=== PATIENT | male | born 1965 | race African-American/Black ===

== ENCOUNTER 2023-12-16 16:12 | Inpatient (IN) | payer MEDICARE, OTHER ==
[2023-12-16] MEDS: methylPREDNISolone SOD SUCCI 125 MG/2 ML VIAL IV STA (17:45)
[2023-12-16] MEDS: SODIUM CHLORIDE 0.9% 500 ML 500 ML IV STA (18:07)
[2023-12-16 18:19] LABS: INR 0.9 (<1.2); Partial Thromboplastin Time 22.9 sec (22.0-30.0); Prothrombin Time 10.3 sec (10.0-12.5)
[2023-12-16 18:20] LABS: Basophils # (A) 0.1 k/uL (0-0.2); Basophils % (A) 0 %; Eosinophils # (A) 0.1 k/uL (0-0.7); Eosinophils % (A) 1 %; HCT 44.4 % (39.0-53.0); Lymphocytes # (A) 0.7 k/uL (1.0-4.8); Lymphocytes % (A) 3 %; MCH 32.4 pg (25.0-35.0); MCHC 33.8 g/dL (31.0-37.0); MCV 95.7 fL (80.0-100.0); Mean Platelet Volume 7.3; Monocytes # (A) 0.9 k/uL (0-1.0); Monocytes % (A) 5 %; Neutrophils # (A) 17.7 k/uL (1.3-7.7); Neutrophils % (A) 90 %; Platelet Count 224 k/uL (150-450); RBC 4.64 m/uL (4.30-5.90); RDW 13.1 % (11.5-15.5); WBC 19.6 k/uL (3.8-10.6)
[2023-12-16 18:52] LABS: ALT 44 U/L (4-49); AST 44 U/L (17-59); African American GFR (CKD) >90 (>60 ml/min/1.73 sqM); Albumin 3.9 g/dL (3.5-5.0); Alkaline Phosphatase 73 U/L (38-126); Anion Gap 6 mmol/L; Blood Urea Nitrogen 13 mg/dL (9-20); Carbon Dioxide 25 mmol/L (22-30); Chloride 105 mmol/L (98-107); Glucose 109 mg/dL (74-99); Magnesium 1.8 mg/dL (1.6-2.3); Non-African American GFR(CKD) >90 (>60 ml/min/1.73 sqM); Sodium 136 mmol/L (137-145); Total Bilirubin 0.6 mg/dL (0.2-1.3); Total Protein 6.5 g/dL (6.3-8.2)
--- NOTE | 2023-12-16 19:23 | XR ---
EXAMINATION TYPE: XR chest 2V DATE OF EXAM: 12/16/2023 COMPARISON: None INDICATION: Difficulty breathing TECHNIQUE: Frontal and lateral views of the chest are obtained. FINDINGS: The heart size is normal. The pulmonary vasculature is normal. Linear infiltrates at the right base. Correlate for atelectasis.. IMPRESSION: 1. Right lung base plate atelectasis
--- NOTE | 2023-12-16 19:24 | ED ---
General Adult HPI - General Chief complaint: Shortness of Breath Stated complaint: SOB Time Seen by Provider: 12/16/23 16:41 Source: patient, EMS Mode of arrival: EMS Limitations: no limitations - History of Present Illness Initial comments: 58-year-old male presenting with chief complaint of shortness of breath. Patient comes from [facility], he has been there for the last 2 and half weeks. He is therefore alcoholism and crack cocaine use. States that he has had some mild shortness of breath for few weeks, but today his symptoms worsened severely. He admits to productive cough. Denies chest pain. Denies lower extremity swelling. Denies fevers. - Related Data Home Medications Medication Instructions Recorded Confirmed Acetaminophen [Tylenol] 650 mg PO Q4H PRN 12/16/23 12/16/23 Albuterol Inhaler [Ventolin Hfa 1 - 2 puff INHALATION RT-Q4H PRN 12/16/23 12/16/23 Inhaler] Albuterol Nebulized [Ventolin 2.5 mg INHALATION RT-Q4H PRN 12/16/23 12/16/23 Nebulized] Aspirin EC [Ecotrin Low Dose] 81 mg PO DAILY 12/16/23 12/16/23 Brexpiprazole [Rexulti] 1 mg PO HS 12/16/23 12/16/23 Calcium/Magnesium/Zinc/Vitamin D 1 tab PO TID PRN 12/16/23 12/16/23 Chlorpheniramine Maleate 4 mg PO Q4H PRN 12/16/23 12/16/23 [Chlor-Trimeton] Citalopram Hydrobromide [CeleXA] 20 mg PO DAILY 12/16/23 12/16/23 Finasteride [Proscar] 5 mg PO DAILY 12/16/23 12/16/23 Hyoscyamine Sulfate [Levsin] 0.125 mg PO QID PRN 12/16/23 12/16/23 Mag Hydrox/Aluminum Hyd/Simeth 30 ml PO Q4HR PRN 12/16/23 12/16/23 [Mylanta Maximum Strength Liq] Multivitamins, Thera [Multivitamin 1 tab PO DAILY 12/16/23 12/16/23 (formulary)] Rosuvastatin [Crestor] 20 mg PO HS 12/16/23 12/16/23 Thiamine [Vitamin B-1] 100 mg PO DAILY 12/16/23 12/16/23 buprenorphine HCL [Subutex] 8 mg SL DAILY 12/16/23 12/16/23 busPIRone HCL 15 mg PO TID 12/16/23 12/16/23 guaiFENesin SYRUP 100MG/5ML 200 mg PO Q4H PRN 12/16/23 12/16/23 [Robitussin] ondansetron HCL [Zofran] 8 mg PO Q6H PRN 12/16/23 12/16/23 traZODone HCL 150 mg PO HS 12/16/23 12/16/23 Previous Rx's Medication Instructions Recorded cefUROXime axetiL [Ceftin] 500 mg PO BID 4 Days #8 tab 12/18/23 Allergies Allergy/AdvReac Type Severity Reaction Status Date / Time quetiapine [From Seroquel] AdvReac Chest Pain Verified 12/16/23 16:37 Review of Systems ROS Statement: Those systems with pertinent positive or pertinent negative responses have been documented in the HPI. ROS Other: All systems not noted in ROS Statement are negative. Past Medical History Past Medical History: Hypertension History of Any Multi-Drug Resistant Organisms: None Reported Past Psychological History: No Psychological Hx Reported Smoking Status: Current every day smoker Past Alcohol Use History: Abuse Past Drug Use History: Prescription Drug Abuse General Exam Limitations: no limitations General appearance: alert, in no apparent distress Head exam: Present: atraumatic, normocephalic Eye exam: Present: normal appearance Neck exam: Present: normal inspection Respiratory exam: Present: wheezes, rales (R sided). Absent: respiratory distress, rhonchi, stridor Cardiovascular Exam: Present: regular rate, normal rhythm, normal heart sounds. Absent: systolic murmur, diastolic murmur, rubs, gallop, clicks Neurological exam: Present: alert, oriented X3 Psychiatric exam: Present: normal affect, normal mood Skin exam: Present: warm, dry Course Vital Signs 12/16/23 12/16/23 12/16/23 16:24 19:39 20:56 Temperature 97.5 F L Pulse Rate 104 H 98 96 Pulse Rate [ Pulse Oximetery ] Respiratory 18 18 Rate Blood Pressure 167/96 145/82 Blood Pressure [Right Arm] O2 Sat by Pulse 91 L 92 L Oximetry 12/16/23 12/16/23 12/17/23 21:11 22:02 05:00 Temperature Pulse Rate 90 101 H 85 Pulse Rate [ Pulse Oximetery ] Respiratory 20 18 Rate Blood Pressure 119/69 127/86 Blood Pressure [Right Arm] O2 Sat by Pulse 92 L 95 Oximetry 12/17/23 07:30 Temperature 98.7 F Pulse Rate Pulse Rate [ 90 Pulse Oximetery ] Respiratory 16 Rate Blood Pressure Blood Pressure 129/87 [Right Arm] O2 Sat by Pulse 92 L Oximetry Medical Decision Making - Medical Decision Making 58-year-old male coming from [place] with chief complaint of shortness of breath. Patient admits to cough. He is hypoxic on room air and is started on 4 L O2 via nasal cannula. He has right-sided Rales and wheezing. WBC 19.6. Chest x-ray report comments on right lung base plate atelectasis, however by my interpretation this appears more consistent with pneumonia. Negative troponin. D-dimer was elevated at 0.92. CT negative for pulmonary embolism, mild consolidation in the lingula right middle lobe and right lower lobe, concerning for mild pneumonia. Patient was given Solu-Medrol 125 mg and DuoNeb breathing treatments. He was given 1 dose of ceftriaxone 1 g and azithromycin 500 mg. He will be admitted. He is agreeable to this plan. I discussed this case with my attending Dr. Medina Was pt. sent in by a medical professional or institution (, PA, MARBLEIZING MACHINE TENDER, urgent care, hospital, or halfway...) When possible be specific @ -No Did you speak to anyone other than the patient for history (EMS, parent, family, police, friend...)? What history was obtained from this source @ -No Did you review nursing and triage notes (agree or disagree)? Why? @ -I reviewed and agree with nursing and triage notes Were old charts reviewed (outside hosp., previous admission, EMS record, old EKG, old radiological studies, urgent care reports/EKG's, halfway records)? Report findings @ -No old charts were reviewed Differential Diagnosis (chest pain, altered mental status, abdominal pain women, abdominal pain men, vaginal bleeding, weakness, fever, dyspnea, syncope, headache, dizziness, GI bleed, back pain, seizure, CVA, palpatations, mental health, musculoskeletal)? @ -MDM Differential Dyspnea: Coronary syndrome, arrhythmia, tamponade, asthma, COPD, pulmonary embolism, p neumonia, pneumothorax, pulmonary effusion, anaphylaxis, diabetic ketoacidosis, flailed chest, pulmonary contusion, diaphragmatic rupture, anemia, neuromuscular this is not meant to be an all-inclusive list. EKG interpreted by me (3pts min.). @ -EKG shows sinus rhythm ventricular rate 98. ID interval 122. QRS 82. QT 330. QTc 385. X-rays interpreted by me (1pt min.). @ -Chest x-ray shows right lung base plate atelectasis. However by my interpretation this appears more consistent with pneumonia, especially given the patient's clinical symptoms CT interpreted by me (1pt min.). @ -CT shows no acute pulmonary embolism. Mild consolidation in the lingula right middle lobe and right lower lobe, concerning for mild pneumonia U/S interpreted by me (1pt. min.). @ -None done What testing was considered but not performed or refused? (CT, X-rays, U/S, labs)? Why? @ -None What meds were considered but not given or refused? Why? @ -None Did you discuss the management of the patient with other professionals (professionals i.e. , PA, MARBLEIZING MACHINE TENDER, lab, RT, psych nurse, licensed social worker, customs and border protection officer, teacher, chief environmental commitment officer, correctional counselor/case manager)? Give summary @ -I spoke with Dr. Diaz who accepted admission Was smoking cessation discussed for >3mins.? @ -No Was critical care preformed (if so, how long)? @ -No Were there social determinants of health that impacted care today? How? (Homelessness, low income, unemployed, alcoholism, drug addiction, transportation, low edu. Level, literacy, decrease access to med. care, detention, rehab)? @ -No Was there de-escalation of care discussed even if they declined (Discuss DNR or withdrawal of care, Hospice)? DNR status @ -No What co-morbidities impacted this encounter? (DM, HTN, Smoking, COPD, CAD, Cancer, CVA, ARF, Chemo, Hep., AIDS, mental health diagnosis, sleep apnea, morbid obesity)? @ -None Was patient admitted / discharged? Hospital course, mention meds given and route, prescriptions, significant lab abnormalities, going to OR and other pert inent info. @ -Admitted, see above for details Undiagnosed new problem with uncertain prognosis? @ -No Drug Therapy requiring intensive monitoring for toxicity (Heparin, Nitro, Insulin, Cardizem)? @ -No Were any procedures done? @ -No Diagnosis/symptom? @ -Pneumonia, hypoxia Acute, or Chronic, or Acute on Chronic? @ -Acute Uncomplicated (without systemic symptoms) or Complicated (systemic symptoms)? @ -Complicated Side effects of treatment? @ -No Exacerbation, Progression, or Severe Exacerbation? @ -No Poses a threat to life or bodily function? How? (Chest pain, [place], [place], pneumonia, PE, COPD, DKA, ARF, appy, cholecystitis, CVA, Diverticulitis, Homicidal, Suicidal, threat to staff... and all critical care pts) @ -yes - Lab Data Result diagrams: 12/18/23 06:14 12/18/23 06:14 Lab Results 12/16/23 12/16/23 12/16/23 Range/Units 17:40 17:40 17:40 WBC 19.6 H (3.8-10.6) k/uL RBC 4.64 (4.30-5.90) m/uL Hgb 15.0 (13.0-17.5) gm/dL Hct 44.4 (39.0-53.0) % MCV 95.7 (80.0-100.0) fL MCH 32.4 (25.0-35.0) pg MCHC 33.8 (31.0-37.0) g/dL RDW 13.1 (11.5-15.5) % Plt Count 224 (150-450) k/uL MPV 7.3 Neutrophils % 90 % Lymphocytes % 3 % Monocytes % 5 % Eosinophils % 1 % Basophils % 0 % Neutrophils # 17.7 H (1.3-7.7) k/uL Lymphocytes # 0.7 L (1.0-4.8) k/uL Monocytes # 0.9 (0-1.0) k/uL Eosinophils # 0.1 (0-0.7) k/uL Basophils # 0.1 (0-0.2) k/uL PT 10.3 (10.0-12.5) sec INR 0.9 (<1.2) APTT 22.9 (22.0-30.0) sec D-Dimer (<0.60) mg/L FEU Sodium 136 L (137-145) mmol/L Potassium 4.0 (3.5-5.1) mmol/L Chloride 105 (98-107) mmol/L Carbon Dioxide 25 (22-30) mmol/L Anion Gap 6 mmol/L BUN 13 (9-20) mg/dL Creatinine 0.65 L (0.66-1.25) mg/dL Est GFR (CKD-EPI)AfAm >90 (>60 ml/min/1.73 sqM) Est GFR (CKD-EPI)NonAf >90 (>60 ml/min/1.73 sqM) Glucose 109 H (74-99) mg/dL Plasma Lactic Acid Zack (0.7-2.0) mmol/L Calcium 9.0 (8.4-10.2) mg/dL Magnesium 1.8 (1.6-2.3) mg/dL Total Bilirubin 0.6 (0.2-1.3) mg/dL AST 44 (17-59) U/L ALT 44 (4-49) U/L Alkaline Phosphatase 73 (38-126) U/L Troponin I (0.000-0.034) ng/mL NT-Pro-B Natriuret Pep pg/mL Total Protein 6.5 (6.3-8.2) g/dL Albumin 3.9 (3.5-5.0) g/dL Procalcitonin (0.02-0.09) ng/mL Influenza Type A (PCR) (Not Detectd) Influenza Type B (PCR) (Not Detectd) RSV (PCR) (Not Detectd) SARS-CoV-2 (PCR) (Not Detectd) 12/16/23 12/16/23 12/16/23 Range/Units 17:40 17:40 17:40 WBC (3.8-10.6) k/uL RBC (4.30-5.90) m/uL Hgb (13.0-17.5) gm/dL Hct (39.0-53.0) % MCV (80.0-100.0) fL MCH (25.0-35.0) pg MCHC (31.0-37.0) g/dL RDW (11.5-15.5) % Plt Count (150-450) k/uL MPV Neutrophils % % Lymphocytes % % Monocytes % % Eosinophils % % Basophils % % Neutrophils # (1.3-7.7) k/uL Lymphocytes # (1.0-4.8) k/uL Monocytes # (0-1.0) k/uL Eosinophils # (0-0.7) k/uL Basophils # (0-0.2) k/uL PT (10.0-12.5) sec INR (<1.2) APTT (22.0-30.0) sec D-Dimer (<0.60) mg/L FEU Sodium (137-145) mmol/L Potassium (3.5-5.1) mmol/L Chloride (98-107) mmol/L Carbon Dioxide (22-30) mmol/L Anion Gap mmol/L BUN (9-20) mg/dL Creatinine (0.66-1.25) mg/dL Est GFR (CKD-EPI)AfAm (>60 ml/min/1.73 sqM) Est GFR (CKD-EPI)NonAf (>60 ml/min/1.73 sqM) Glucose (74-99) mg/dL Plasma Lactic Acid Zack 1.2 (0.7-2.0) mmol/L Calcium (8.4-10.2) mg/dL Magnesium (1.6-2.3) mg/dL Total Bilirubin (0.2-1.3) mg/dL AST (17-59) U/L ALT (4-49) U/L Alkaline Phosphatase (38-126) U/L Troponin I <0.012 (0.000-0.034) ng/mL NT-Pro-B Natriuret Pep pg/mL Total Protein (6.3-8.2) g/dL Albumin (3.5-5.0) g/dL Procalcitonin (0.02-0.09) ng/mL Influenza Type A (PCR) Not Detected (Not Detectd) Influenza Type B (PCR) Not Detected (Not Detectd) RSV (PCR) Not Detected (Not Detectd) SARS-CoV-2 (PCR) Not Detected (Not Detectd) 12/16/23 12/16/23 12/17/23 Range/Units 20:24 21:24 10:11 WBC (3.8-10.6) k/uL RBC (4.30-5.90) m/uL Hgb (13.0-17.5) gm/dL Hct (39.0-53.0) % MCV (80.0-100.0) fL MCH (25.0-35.0) pg MCHC (31.0-37.0) g/dL RDW (11.5-15.5) % Plt Count (150-450) k/uL MPV Neutrophils % % Lymphocytes % % Monocytes % % Eosinophils % % Basophils % % Neutrophils # (1.3-7.7) k/uL Lymphocytes # (1.0-4.8) k/uL Monocytes # (0-1.0) k/uL Eosinophils # (0-0.7) k/uL Basophils # (0-0.2) k/uL PT (10.0-12.5) sec INR (<1.2) APTT (22.0-30.0) sec D-Dimer 0.92 H (<0.60) mg/L FEU Sodium (137-145) mmol/L Potassium (3.5-5.1) mmol/L Chloride (98-107) mmol/L Carbon Dioxide (22-30) mmol/L Anion Gap mmol/L BUN (9-20) mg/dL Creatinine (0.66-1.25) mg/dL Est GFR (CKD-EPI)AfAm (>60 ml/min/1.73 sqM) Est GFR (CKD-EPI)NonAf (>60 ml/min/1.73 sqM) Glucose (74-99) mg/dL Plasma Lactic Acid Zack (0.7-2.0) mmol/L Calcium (8.4-10.2) mg/dL Magnesium (1.6-2.3) mg/dL Total Bilirubin (0.2-1.3) mg/dL AST (17-59) U/L ALT (4-49) U/L Alkaline Phosphatase (38-126) U/L Troponin I (0.000-0.034) ng/mL NT-Pro-B Natriuret Pep 167 pg/mL Total Protein (6.3-8.2) g/dL Albumin (3.5-5.0) g/dL Procalcitonin 0.19 H (0.02-0.09) ng/mL Influenza Type A (PCR) (Not Detectd) Influenza Type B (PCR) (Not Detectd) RSV (PCR) (Not Detectd) SARS-CoV-2 (PCR) (Not Detectd) 12/17/23 12/17/23 Range/Units 12:28 12:28 WBC 19.8 H (3.8-10.6) k/uL RBC 4.41 (4.30-5.90) m/uL Hgb 14.4 (13.0-17.5) gm/dL Hct 42.2 (39.0-53.0) % MCV 95.9 (80.0-100.0) fL MCH 32.7 (25.0-35.0) pg MCHC 34.1 (31.0-37.0) g/dL RDW 13.4 (11.5-15.5) % Plt Count 243 (150-450) k/uL MPV 7.8 Neutrophils % 85 % Lymphocytes % 7 % Monocytes % 6 % Eosinophils % 1 % Basophils % 0 % Neutrophils # 16.9 H (1.3-7.7) k/uL Lymphocytes # 1.3 (1.0-4.8) k/uL Monocytes # 1.1 H (0-1.0) k/uL Eosinophils # 0.1 (0-0.7) k/uL Basophils # 0.0 (0-0.2) k/uL PT (10.0-12.5) sec INR (<1.2) APTT (22.0-30.0) sec D-Dimer (<0.60) mg/L FEU Sodium 133 L (137-145) mmol/L Potassium 4.5 (3.5-5.1) mmol/L Chloride 102 (98-107) mmol/L Carbon Dioxide 27 (22-30) mmol/L Anion Gap 4 mmol/L BUN 20 (9-20) mg/dL Creatinine 0.71 (0.66-1.25) mg/dL Est GFR (CKD-EPI)AfAm >90 (>60 ml/min/1.73 sqM) Est GFR (CKD-EPI)NonAf >90 (>60 ml/min/1.73 sqM) Glucose 123 H (74-99) mg/dL Plasma Lactic Acid Zack (0.7-2.0) mmol/L Calcium 8.7 (8.4-10.2) mg/dL Magnesium (1.6-2.3) mg/dL Total Bilirubin (0.2-1.3) mg/dL AST (17-59) U/L ALT (4-49) U/L Alkaline Phosphatase (38-126) U/L Troponin I (0.000-0.034) ng/mL NT-Pro-B Natriuret Pep pg/mL Total Protein (6.3-8.2) g/dL Albumin (3.5-5.0) g/dL Procalcitonin (0.02-0.09) ng/mL Influenza Type A (PCR) (Not Detectd) Influenza Type B (PCR) (Not Detectd) RSV (PCR) (Not Detectd) SARS-CoV-2 (PCR) (Not Detectd) Disposition Clinical Impression: Pneumonia, Hypoxia Disposition: ADMITTED IP TO THIS HOSP Condition: Serious Time of Disposition: 00:12
[2023-12-16] MEDS: IPRATROPIUM-ALBUTEROL 3 ML NEB INHALATION STA ×2 (20:54→20:55)
[2023-12-16] MEDS: NICOTINE 14MG/24HR PATCH TRANSDERM STA (21:44)
[2023-12-16] MEDS: cefTRIAXone IN SWFI 1,000 MG/10 ML SYRINGE IVP STA (21:46)
[2023-12-16] MEDS: ONDANSETRON 4 MG/2 ML VIAL IVP STA (21:57)
[2023-12-16] MEDS: AZITHROMYCIN 500 MG in SODIUM CHLORIDE 0.9% 250 ML IVPB STA (21:58)
--- NOTE | 2023-12-16 23:55 | CT ---
EXAM: CT Angiography Chest With Intravenous Contrast CLINICAL HISTORY: ITS.REASON CT Reason: sob TECHNIQUE: Axial computed tomographic angiography images of the chest with intravenous contrast. CTDI is 17.8 mGy and DLP is 459.6 mGy-cm. This CT exam was performed using one or more of the following dose reduction techniques: automated exposure control, adjustment of the mA and/or kV according to patient size, and/or use of iterative reconstruction technique. MIP reconstructed images were created and reviewed. COMPARISON: No relevant prior studies available. FINDINGS: Pulmonary arteries: Unremarkable. No acute pulmonary embolism. Aorta: No acute findings. No thoracic aortic aneurysm. Lungs: Mild consolidation in the lingula, RIGHT middle lobe, and RIGHT lower lobe, concerning for mild pneumonia. Pleural space: Unremarkable. No pleural effusion or pneumothorax. Heart: Unremarkable. No cardiomegaly. No significant pericardial effusion. No evidence of RV dysfunction. Bones/joints: No acute fracture. No dislocation. Soft tissues: Unremarkable. Lymph nodes: Unremarkable. No enlarged lymph nodes. Liver: Hepatic steatosis. IMPRESSION: 1. No acute pulmonary embolism. 2. Mild consolidation in the lingula, RIGHT middle lobe, and RIGHT lower lobe, concerning for mild pneumonia.
[2023-12-17] MEDS ORDERED: NALOXONE 0.4 MG/ML 1 ML VIAL IV PRN (00:07)
[2023-12-17] MEDS ORDERED: IBUPROFEN 400 MG TAB PO PRN (00:07)
[2023-12-17] MEDS ORDERED: IPRATROPIUM-ALBUTEROL 3 ML NEB INHALATION PRN (00:08)
[2023-12-17] MEDS: SODIUM CHLORIDE 0.9% 1,000 ML IV SCH (00:42)
[2023-12-17] MEDS: BUPRENORPHINE-NALOX 8-2 MG TAB 1 EACH TAB.SUBL SL SCH (04:49)
[2023-12-17] MEDS: IPRATROPIUM-ALBUTEROL 3 ML NEB INHALATION SCH (08:26)
[2023-12-17 10:55] VITALS: RESP 16
[2023-12-17 12:44] LABS: Basophils % (A) 0 %; Eosinophils # (A) 0.1 k/uL (0-0.7); Eosinophils % (A) 1 %; HCT 42.2 % (39.0-53.0); HGB 14.4 gm/dL (13.0-17.5); Lymphocytes # (A) 1.3 k/uL (1.0-4.8); Lymphocytes % (A) 7 %; MCH 32.7 pg (25.0-35.0); MCHC 34.1 g/dL (31.0-37.0); MCV 95.9 fL (80.0-100.0); Mean Platelet Volume 7.8; Monocytes # (A) 1.1 k/uL (0-1.0); Monocytes % (A) 6 %; Neutrophils # (A) 16.9 k/uL (1.3-7.7); Neutrophils % (A) 85 %; Platelet Count 243 k/uL (150-450); RBC 4.41 m/uL (4.30-5.90); RDW 13.4 % (11.5-15.5); WBC 19.8 k/uL (3.8-10.6)
[2023-12-17 12:49] LABS: African American GFR (CKD) >90 (>60 ml/min/1.73 sqM); Anion Gap 4 mmol/L; Blood Urea Nitrogen 20 mg/dL (9-20); Calcium 8.7 mg/dL (8.4-10.2); Carbon Dioxide 27 mmol/L (22-30); Chloride 102 mmol/L (98-107); Glucose 123 mg/dL (74-99); Non-African American GFR(CKD) >90 (>60 ml/min/1.73 sqM); Potassium 4.5 mmol/L (3.5-5.1); Sodium 133 mmol/L (137-145)
[2023-12-17] MEDS: AZITHROMYCIN 500 MG TAB PO SCH (13:05)
[2023-12-17] MEDS: FAMOTIDINE 20 MG TAB PO SCH (13:06)
[2023-12-17] MEDS: PANTOPRAZOLE 40 MG TABLET PO SCH (13:06)
[2023-12-17] MEDS: FINASTERIDE 5 MG TAB PO SCH (13:06)
[2023-12-17] MEDS: busPIRone HCl 5 MG TAB PO SCH (17:43)
[2023-12-17] MEDS: HEPARIN SODIUM,PORCINE 5,000 UNIT/ML 1 ML VIAL SQ SCH (17:43)
[2023-12-17] MEDS: BREXPIPRAZOLE 1 MG PO SCH (21:35)
[2023-12-17] MEDS: traZODone HCL 100 MG TAB PO SCH (21:37)
[2023-12-17] MEDS: TEMAZEPAM 7.5 MG CAP PO PRN (21:37)
[2023-12-17] MEDS: NICOTINE 14MG/24HR PATCH TRANSDERM SCH (21:37)
[2023-12-17] MEDS: ATORVASTATIN 40 MG TAB PO SCH (21:38)
[2023-12-17 22:20] VITALS: TEMP 98
--- NOTE | 2023-12-17 22:48 | P.HPIM ---
History of Present Illness H&P Date: 12/17/23 Chief Complaint: Shortness of breath Patient is a 58-year-old male with a past medical history of hypertension, alcohol abuse and prescription drug abuse and currently everyday smoker who is currently at [facility] facility was sent to ER due to complaints of shortness of breath. Patient has been at the [facility] for almost 2 and half weeks now. Patient does have severe alcohol abuse and also crack cocaine use for which he is getting rehab over there. Patient was sent to ER due to worsening symptoms. Patient was also complaining of cough without sputum production. No complaints of chest pain. No fever no chills. No nausea vomiting abdomen pain or diar bayron. Denied any leg swelling. On admission patient was tachycardic with blood pressure 167/96 pulse is 104 respiration 18 and pulse ox 91% on 4 L oxygen via nasal cannula. Chest x-ray showed right lung base plate atelectasis. Patient was found to have elevated D-dimer level 0.92. CTA chest showed no acute pulmonary embolism. Mild consolidation in the lingula, right middle lobe and right lower lobe concerning for mild pneumonia. EKG showed possible left atrial enlargement sinus rhythm. Laboratory pressure WBC 19.6 hemoglobin 15.0 and platelets 224 Neutrophils 17.7 Sodium 136 potassium 4.0 chloride 105 bicarb is 25 BUN 13 and creatinine 0.65 blood sugar is 109 and lactic acid 1.2 and troponin 0.012 and delivery nurse and not elevated. Bilirubin level is 0.6 and proBNP 167. Influenza A, B, RSV and COVID-19 PCR not detected. Review of Systems Constitutional: Patient denies any fever or chills . No generalized weakness or weight loss. Abdomen: Patient does have nausea. No vomiting. No diarrhea. No abdominal pain. Cardiovascular: Patient denies any chest pain. Patient does have short of breath no palpitations. Respiratory: patient does have cough without much sputum production. Associated with shortness of breath Neurologic: Patient denied any numbness or tingling headache. Musculoskeletal: Patient denies any complaints of joint swelling or deformity. Skin: Negative Psychiatric: Negative Endocrine: No heat or cold intolerance. No recent weight gain. Genitourinary: No dysuria or hematuria. All other 14 point ROS negative except the above Past Medical History Past Medical History: Hypertension History of Any Multi-Drug Resistant Organisms: None Reported Past Psychological History: No Psychological Hx Reported Smoking Status: Current every day smoker Past Alcohol Use History: Abuse Past Drug Use History: Prescription Drug Abuse Medications and Allergies Home Medications Medication Instructions Recorded Confirmed Type Acetaminophen [Tylenol] 650 mg PO Q4H PRN 12/16/23 12/16/23 History Albuterol Inhaler [Ventolin Hfa 1 - 2 puff INHALATION RT-Q4H PRN 12/16/23 12/16/23 History Inhaler] Albuterol Nebulized [Ventolin 2.5 mg INHALATION RT-Q4H PRN 12/16/23 12/16/23 History Nebulized] Aspirin EC [Ecotrin Low Dose] 81 mg PO DAILY 12/16/23 12/16/23 History Brexpiprazole [Rexulti] 1 mg PO HS 12/16/23 12/16/23 History Calcium/Magnesium/Zinc/Vitamin D 1 tab PO TID PRN 12/16/23 12/16/23 History Chlorpheniramine Maleate 4 mg PO Q4H PRN 12/16/23 12/16/23 History [Chlor-Trimeton] Citalopram Hydrobromide [CeleXA] 20 mg PO DAILY 12/16/23 12/16/23 History Finasteride [Proscar] 5 mg PO DAILY 12/16/23 12/16/23 History Hyoscyamine Sulfate [Levsin] 0.125 mg PO QID PRN 12/16/23 12/16/23 History Ibuprofen [Motrin Ib] 600 mg PO Q6H PRN 12/16/23 12/16/23 History Losartan Potassium [Cozaar] 100 mg PO DAILY 12/16/23 12/16/23 History Mag Hydrox/Aluminum Hyd/Simeth 30 ml PO Q4HR PRN 12/16/23 12/16/23 History [Mylanta Maximum Strength Liq] Multivitamins, Thera [Multivitamin 1 tab PO DAILY 12/16/23 12/16/23 History (formulary)] NIFEdipine [Procardia XL] 90 mg PO DAILY 12/16/23 12/16/23 History Rosuvastatin [Crestor] 20 mg PO HS 12/16/23 12/16/23 History Thiamine [Vitamin B-1] 100 mg PO DAILY 12/16/23 12/16/23 History buprenorphine HCL [Subutex] 8 mg SL DAILY 12/16/23 12/16/23 History busPIRone HCL [Buspirone HCl] 15 mg PO TID 12/16/23 12/16/23 History guaiFENesin SYRUP 100MG/5ML 200 mg PO Q4H PRN 12/16/23 12/16/23 History [Robitussin] ondansetron HCL [Zofran] 8 mg PO Q6H PRN 12/16/23 12/16/23 History traZODone HCL 150 mg PO HS 12/16/23 12/16/23 History Allergies Allergy/AdvReac Type Severity Reaction Status Date / Time quetiapine [From Seroquel] AdvReac Chest Pain Verified 12/16/23 16:37 Physical Exam Vitals: Vital Signs Temp Pulse Pulse Resp BP BP Pulse Ox 12/17/23 11:52 96 12/17/23 11:42 92 12/17/23 09:11 16 12/17/23 08:40 92 12/17/23 08:26 92 12/17/23 07:30 98.7 F 90 16 129/87 92 L 12/17/23 05:00 85 18 127/86 95 12/16/23 22:02 101 H 20 119/69 92 L 12/16/23 21:11 90 12/16/23 20:56 96 12/16/23 19:39 98 18 145/82 92 L 12/16/23 16:24 97.5 F L 104 H 18 167/96 91 L Intake and Output 12/16/23 12/17/23 12/17/23 22:59 06:59 14:59 Intake Total 240 Balance 240 Intake: Oral 240 Other: Voiding Method Toilet Weight 95.254 kg 95.254 kg PHYSICAL EXAMINATION: Patient is lying in the bed comfortably, no acute distress, awake alert and oriented.. HEENT: Normocephalic. Neck is supple. Pupils reactive. Nostrils clear. Oral cavity is moist. Neck reveals no JVD, carotid bruits, or thyromegaly. CHEST EXAMINATION: Trachea is central. Symmetrical expansion. Scattered rhonchi. Nonlabored breathing. No wheezing. CARDIAC: Normal S1, S2 with no gallops. No murmurs ABDOMEN: Soft. Bowel sounds normal. No organomegaly. No abdominal bruits. Extremities: reveal no edema. No clubbing or cyanosis Neurologically awake, alert, oriented x3 with well-coordinated movements. No focal deficits noted Skin: No rash or skin lesions. Psychiatric: Coperative. Nonsuicidal, anxious. Musculoskeletal: No joint swelling or deformity. Normal range of motion. Results CBC & Chem 7: 12/17/23 12:28 12/17/23 12:28 Labs: Abnormal Lab Results - Last 24 Hours (Table) 12/16/23 12/16/23 12/16/23 Range/Units 17:40 17:40 21:24 WBC 19.6 H (3.8-10.6) k/uL Neutrophils # 17.7 H (1.3-7.7) k/uL Lymphocytes # 0.7 L (1.0-4.8) k/uL D-Dimer 0.92 H (<0.60) mg/L FEU Sodium 136 L (137-145) mmol/L Creatinine 0.65 L (0.66-1.25) mg/dL Glucose 109 H (74-99) mg/dL Thrombosis Risk Factor Assmnt - DVT/VTE Prophylaxis DVT/VTE Prophylaxis: Pharmacologic Prophylaxis ordered - Choose All That Apply Each Factor Represents 1 point: Age 41-60 years, Obesity (BMI >25) Other congenital or acquired thrombophilia - If yes, enter type in comment: No Thrombosis Risk Factor Assessment Total Risk Factor Score: 2 Thrombosis Risk Factor Assessment Level: Low Risk Assessment and Plan Assessment: Acute hypoxic respiratory failure secondary to pneumonia. Requiring oxygen at 4 L via nasal cannula on admission Right lower lobe and middle lobe consolidation due to pneumonia Sepsis secondary to pneumonia History of alcohol abuse and crack cocaine use patient is currently at [facility] facility for the past 2 and half weeks. Hypertension uncontrolled on admission Hyperlipidemia Anxiety/depression bipolar disorder DVT prophylaxis with heparin subcu and GI prophylaxis with Pepcid Plan: Patient will be continued on IV antibiotics ceftriaxone and azithromycin. Continue with oxygen supplementation and titrate down to room air Continue with Andrea Current with home medications and his psychiatric medications. Blood pressure is controlled now. Continue to follow closely. Follow-up culture reports. Time with Patient: Greater than 30
[2023-12-18] MEDS: ACETAMINOPHEN TAB 325 MG TAB PO PRN (01:15)
[2023-12-18] MEDS: ASPIRIN 81 MG PO SCH (08:13)
[2023-12-18] MEDS: THIAMINE 100 MG TAB PO SCH (08:13)
[2023-12-18] MEDS: CITALOPRAM HYDROBROMIDE 20 MG TAB PO SCH (08:13)
[2023-12-18 09:23] VITALS: BP 133/79
[2023-12-18 09:49] LABS: Basophils # (A) 0.04 X 10*3/uL (0.00-0.10); Basophils % (A) 0.3 %; Eosinophils # (A) 0.13 X 10*3/uL (0.04-0.35); Eosinophils % (A) 1.1 %; HCT 41.7 % (39.6-50.0); HGB 13.8 g/dL (13.0-17.0); Lymphocytes # (A) 2.62 X 10*3/uL (0.90-5.00); Lymphocytes % (A) 21.7 %; MCH 30.9 pg (27.0-32.0); MCHC 33.1 g/dL (32.0-37.0); MCV 93.5 FL (80.0-97.0); Mean Platelet Volume 9.8 FL (9.5-12.2); Monocytes % (A) 10.8 %; NRBC Per 100 WBC 0 X 10*3/uL (0.00-0.01); Neutrophils # (A) 7.92 X 10*3/uL (1.80-7.70); Neutrophils % (A) 65.8 %; Platelet Count 234 X 10*3/uL (140-440); RBC 4.46 X 10*6/uL (4.40-5.60); RDW 13.2 % (11.5-14.5); WBC 12.05 X 10*3/uL (4.50-10.00)
[2023-12-18 09:55] LABS: BUN/Creat Ratio 15.78 Ratio (12.00-20.00); Blood Urea Nitrogen 14.2 mg/dL (9.0-27.0); Carbon Dioxide 28.4 mmol/L (21.6-31.8); Chloride 104 mmol/L (96-109); Glucose 131 mg/dL (70-110); Potassium 4.3 mmol/L (3.5-5.5); Sodium 141 mmol/L (135-145)
[2023-12-18 09:56] LABS: Calcium 8.6 mg/dL (8.7-10.3)
[2023-12-18 12:25] VITALS: PULSE 90
--- NOTE | 2023-12-21 17:59 | CDI ---
Documentation Clarification Form Date: 12/21/2023 05:47:59 PM From: Mary Perez RN, CCDS Email: [email or web address] Admit Date: 12/17/2023 01:43:00 PM Patient Name: Gio Russo Visit Number: [id number] Discharge Date: 12/18/2023 02:13:00 PM ATTENTION: The Clinical Documentation Specialists (CDI) and [facility] Coding Staff appreciate your assistance in clarifying documentation. Please respond to the clarification below the line at the bottom and electronically sign. The CDI & [facility] Coding staff will review the response and follow-up if needed. Please note: Queries are made part of the Legal Health Record. If you have any questions, please contact the author of this message via ITS. Dr. Aurea Arnold Sepsis is documented in the H&P. Additional clarification is requested. History/Risk Factors: Alcoholism and crack cocaine use. Presents from [place] with SOB and cough. Admitted with pneumonia and sepsis secondary to pneumonia per H&P. Clinical Indicators: ED: "Pneumonia, Hypoxia." H&P: "Acute hypoxic respiratory failure secondary to pneumonia. Sepsis secondary to pneumonia." vital signs: Temp 97.5, HR 104, RR 18, pox 91% 12/16 vital signs: Temp 98, HR 96, RR 20, pox 92% -12/17 WBC: 19.6-19.8-12.05 Lactic acid: 1.2 12/16 Procalcitonin: 0.19 Treatment: IV Azithromycin 500mg x1 on ; Azithromycin 500mg po daily 12/16 and 12/17; IV Rocephin 1000mg x1 on ; IV Rocephin 1gm Q24H 12/16-12/17; 1L 0.9 NS IV bolus on After work up and study, please clarify which diagnosis is most appropriate? [ x ] Sepsis ruled in [ ] Sepsis treated prophylactically [ ] Sepsis ruled out [ ] Other, please specify [ ] Unable to determine MTDD
--- NOTE | 2023-12-29 11:41 | P.DS ---
Providers Date of admission: 12/17/23 13:43 Expected date of discharge: 12/18/23 Attending physician: Favio Diaz MD Primary care physician: Stated None Hospital Course: Discharge diagnosis Acute hypoxic respiratory failure secondary to pneumonia. Requiring oxygen at 4 L via nasal cannula on admission. Currently down to room air. Right lower lobe and middle lobe consolidation due to pneumonia Sepsis secondary to pneumonia History of alcohol abuse and crack cocaine use patient is currently at [place] rehab facility for the past 2 and half weeks. Hypertension uncontrolled on admission Hyperlipidemia Anxiety/depression bipolar disorder DVT prophylaxis with heparin subcu and GI prophylaxis with Pepcid Hospital course Patient is a 58-year-old male with a past medical history of hypertension, alcohol abuse and prescription drug abuse and currently everyday smoker who is currently at [place] [facility] facility was sent to ER due to complaints of shortness of breath. Patient has been at the [place] [facility] for almost 2 and half weeks now. Patient does have severe alcohol abuse and also crack cocaine use for which he is getting rehab over there. Patient was sent to ER due to worsening symptoms. Patient was also complaining of cough without sputum production. No complaints of chest pain. No fever no chills. No nausea vomiting abdomen pain or diarrhea. Denied any leg swelling. On admission patient was tachycardic with blood pressure 167/96 pulse is 104 respiration 18 and pulse ox 91% on 4 L oxygen via nasal cannula. Chest x-ray showed right lung base plate atelectasis. Patient was found to have elevated D-dimer level 0.92. CTA chest showed no acute pulmonary embolism. Mild consolidation in the lingula, right middle lobe and right lower lobe concerning for mild pneumonia. EKG showed possible left atrial enlargement sinus rhythm. Laboratory pressure WBC 19.6 hemoglobin 15.0 and platelets 224 Neutrophils 17.7 Sodium 136 potassium 4.0 chloride 105 bicarb is 25 BUN 13 and creatinine 0.65 blood sugar is 109 and lactic acid 1.2 and troponin 0.012 and delivery nurse and not elevated. Bilirubin level is 0.6 and proBNP 167. Influenza A, B, RSV and COVID-19 PCR not detected. 12-17 Patient is currently resting in the bed. Awake alert and oriented x 3. No complaints of chest pain or worsening shortness of breath. Patient is back to room air. No fever no chills. Continued on antibiotics ceftriaxone azithromycin. Patient did improve clinically and would like to be discharged home. Laboratory data showed WBC trending down to 12.05 hemoglobin 13.8 and platelets 234, sodium 141 potassium 4.3 chloride 104 bicarb is 28.4 BUN 14.20 creatinine 0.9 and blood sugar 131 and calcium 8.6. Procalcitonin level was 0.19 Patient is being discharged home and was advised to follow-up with primary care physician in the next 3 to 5 days. Alcohol abstinence has been counseled extensively. PHYSICAL EXAMINATION: Patient is lying in the bed comfortably, no acute distress, awake alert and oriented.. HEENT: Normocephalic. Neck is supple. Pupils reactive. Nostrils clear. Oral cavity is moist. Neck reveals no JVD, carotid bruits, or thyromegaly. CHEST EXAMINATION: Trachea is central. Symmetrical expansion. Nonlabored breathing. No wheezing. CARDIAC: Normal S1, S2 with no gallops. No murmurs ABDOMEN: Soft. Bowel sounds normal. No organomegaly. No abdominal bruits. Extremities: reveal no edema. No clubbing or cyanosis Neurologically awake, alert, oriented x3 with well-coordinated movements. No focal deficits noted Skin: No rash or skin lesions. Psychiatric: Coperative. Nonsuicidal, anxious. Musculoskeletal: No joint swelling or deformity. Normal range of motion. Discharge vitals reviewed. Patient Condition at Discharge: Stable Plan - Discharge Summary New Discharge Prescriptions: New cefUROXime axetiL [Ceftin] 500 mg PO BID 4 Days #8 tab Continue buprenorphine HCL [Subutex] 8 mg SL DAILY Albuterol Inhaler [Ventolin Hfa Inhaler] 1 - 2 puff INHALATION RT-Q4H PRN PRN Reason: Shortness Of Breath Thiamine [Vitamin B-1] 100 mg PO DAILY Acetaminophen [Tylenol] 650 mg PO Q4H PRN PRN Reason: Fever And/ Or Pain Multivitamins, Thera [Multivitamin (formulary)] 1 tab PO DAILY Hyoscyamine Sulfate [Levsin] 0.125 mg PO QID PRN PRN Reason: Gi Upset traZODone HCL 150 mg PO HS Rosuvastatin [Crestor] 20 mg PO HS busPIRone HCL 15 mg PO TID Citalopram Hydrobromide [CeleXA] 20 mg PO DAILY ondansetron HCL [Zofran] 8 mg PO Q6H PRN PRN Reason: Nausea And Vomiting Albuterol Nebulized [Ventolin Nebulized] 2.5 mg INHALATION RT-Q4H PRN PRN Reason: Shortness Of Breath Mag Hydrox/Aluminum Hyd/Simeth [Mylanta Maximum Strength Liq] 30 ml PO Q4HR PRN PRN Reason: Gi Upset guaiFENesin SYRUP 100MG/5ML [Robitussin] 200 mg PO Q4H PRN PRN Reason: Cough Chlorpheniramine Maleate [Chlor-Trimeton] 4 mg PO Q4H PRN PRN Reason: Allergy Symptoms Calcium/Magnesium/Zinc/Vitamin D 1 tab PO TID PRN PRN Reason: Cramping Brexpiprazole [Rexulti] 1 mg PO HS Finasteride [Proscar] 5 mg PO DAILY Aspirin EC [Ecotrin Low Dose] 81 mg PO DAILY Discontinued Ibuprofen [Motrin Ib] 600 mg PO Q6H PRN PRN Reason: Pain NIFEdipine [Procardia XL] 90 mg PO DAILY Losartan Potassium [Cozaar] 100 mg PO DAILY Discharge Medication List Acetaminophen [Tylenol] 650 mg PO Q4H PRN 12/16/23 [History] Albuterol Inhaler [Ventolin Hfa Inhaler] 1 - 2 puff INHALATION RT-Q4H PRN 12/16/23 [History] Albuterol Nebulized [Ventolin Nebulized] 2.5 mg INHALATION RT-Q4H PRN 12/16/23 [History] Aspirin EC [Ecotrin Low Dose] 81 mg PO DAILY 12/16/23 [History] Brexpiprazole [Rexulti] 1 mg PO HS 12/16/23 [History] Calcium/Magnesium/Zinc/Vitamin D 1 tab PO TID PRN 12/16/23 [History] Chlorpheniramine Maleate [Chlor-Trimeton] 4 mg PO Q4H PRN 12/16/23 [History] Citalopram Hydrobromide [CeleXA] 20 mg PO DAILY 12/16/23 [History] Finasteride [Proscar] 5 mg PO DAILY 12/16/23 [History] Hyoscyamine Sulfate [Levsin] 0.125 mg PO QID PRN 12/16/23 [History] Mag Hydrox/Aluminum Hyd/Simeth [Mylanta Maximum Strength Liq] 30 ml PO Q4HR PRN 12/16/23 [History] Multivitamins, Thera [Multivitamin (formulary)] 1 tab PO DAILY 12/16/23 [History] Rosuvastatin [Crestor] 20 mg PO HS 12/16/23 [History] Thiamine [Vitamin B-1] 100 mg PO DAILY 12/16/23 [History] buprenorphine HCL [Subutex] 8 mg SL DAILY 12/16/23 [History] busPIRone HCL 15 mg PO TID 12/16/23 [History] guaiFENesin SYRUP 100MG/5ML [Robitussin] 200 mg PO Q4H PRN 12/16/23 [History] ondansetron HCL [Zofran] 8 mg PO Q6H PRN 12/16/23 [History] traZODone HCL 150 mg PO HS 12/16/23 [History] cefUROXime axetiL [Ceftin] 500 mg PO BID 4 Days #8 tab 12/18/23 [Rx] Follow up Appointment(s)/Referral(s): Carol Ann Otero MD [STAFF PHYSICIAN] - 3 Days Activity/Diet/Wound Care/Special Instructions: FOLLOW UP DIRECTED, SOONER FOR WORSENING PROBLEMS OR CONCERNS, Discharge Disposition: HOME SELF-CARE
== END 2023-12-18 14:13 | disposition home or self-care (01) | DRG 871 ==
LOC: EC 16:12 → 6NMEDSUR 12-17 00:08 → OBSVTOIN 12-17 13:43
PROVIDERS: ADMIT Internal Medicine; ATTEND Internal Medicine
DX: A41.9 Sepsis, unspecified organism (principal); J18.9 Pneumonia, unspecified organism; J96.01 Acute respiratory failure with hypoxia; J98.11 Atelectasis; F10.20 Alcohol dependence, uncomplicated; F31.9 Bipolar disorder, unspecified; F14.90 Cocaine use, unspecified, uncomplicated; I10 Essential (primary) hypertension; E78.5 Hyperlipidemia, unspecified; F41.9 Anxiety disorder, unspecified; F17.200 Nicotine dependence, unspecified, uncomplicated; Z79.82 Long term (current) use of aspirin; Z79.899 Other long term (current) drug therapy; Z88.8 Allergy status to other drugs, medicaments and biological substances
CPT/HCPCS: 36415; 71046; 71275; 80048; 80053; 83605; 83735; 83880; 84145; 84484; 85025; 85379; 85610; 85730; 87070; 87205; 87636; 93005; 94640; 96361; 96365; 96366; 96375; 99285